=== PATIENT | male | born 1995 | race African-American/Black ===

== ENCOUNTER 2024-06-02 16:36 | Emergency (ER) | payer MEDICAID, OTHER ==
[~2024-06-02] VITALS: Ht 188 cm; Wt 59.0 kg
[2024-06-02 16:59] VITALS: O2SAT 100
[2024-06-02] MEDS ORDERED: HYDR-4001 MT (18:18)
[2024-06-02] MEDS ORDERED: IBUP-2029 MT (18:18)
[2024-06-02] MEDS: HYDROCODONE/ACETAMINOPHEN 5/325MG TABLET PO NR (18:28)
[2024-06-02] MEDS: IBUPROFEN 600MG TABLET PO NR (18:28)
[2024-06-02 18:47] VITALS: BP 156/74; PULSE 61; RESP 16; TEMP 36.94740; O2SAT 100
== END 2024-06-02 18:50 | disposition home or self-care (01) ==
LOC: ER 16:36
DX: S62.617A Displaced fracture of proximal phalanx of left little finger, initial encounter for closed fracture (principal); J45.909 Unspecified asthma, uncomplicated; X58.XXXA Exposure to other specified factors, initial encounter; Y93.89 Activity, other specified; Y92.89 Other specified places as the place of occurrence of the external cause; Y99.8 Other external cause status
CPT/HCPCS: 73130; 29125; 99283; Z7610